=== PATIENT | male | born 1980 | race Caucasian/White ===

== ENCOUNTER 2024-07-10 20:25 | Emergency (ER) | payer SELFPAY ==
[2024-07-10 20:33] VITALS: BP 105/70; PULSE 68; RESP 18; TEMP 36.7; O2SAT 98; BMI 21.4
== END 2024-07-10 21:49 | disposition left against medical advice (07) ==
LOC: ER 20:35
PROVIDERS: Emergency Provider Family Medicine
DX: Z53.21 Procedure and treatment not carried out due to patient leaving prior to being seen by health care provider (principal)